=== PATIENT | male | born 1945 | race Caucasian/White ===

== ENCOUNTER 2018-07-18 03:37 | Emergency (ER) | payer MEDICARE ==
[~2018-07-18] VITALS: Ht 170.2 cm; Wt 84.0 kg
[~2018-07-18 03:37] MED LIST: ALFU10TA PO; ATOR20TA PO; BUDE10.2 INH; CHOL10002 PO; FINA5TAB11 PO; WALKERFR
[2018-07-18] MEDS ORDERED: HYDROmorphone 1 mg/ml syringe IM ONE (04:10)
[2018-07-18] MEDS ORDERED: ondansetron 4mg rapidly disintigrating tab PO ONE (04:10)
[2018-07-18 06:05] VITALS: BP 131/68
== END 2018-07-18 06:09 | disposition home or self-care (01) ==
LOC: ER 03:38
DX: S80.02XA Contusion of left knee, initial encounter (principal); M19.90 Unspecified osteoarthritis, unspecified site; Z88.5 Allergy status to narcotic agent; Z79.899 Other long term (current) drug therapy; W18.39XA Other fall on same level, initial encounter; Y93.89 Activity, other specified; Y92.89 Other specified places as the place of occurrence of the external cause; Y99.8 Other external cause status
CPT/HCPCS: 73560; 96372; 99284; J1170

== ENCOUNTER 2023-07-27 14:10 | Emergency (ER) | payer OTHER, MEDICARE ==
[~2023-07-27] VITALS: Ht 170.2 cm; Wt 85.5 kg
[2023-07-27 14:43] VITALS: BP 147/77; PULSE 65; RESP 18; TEMP 98.3; O2SAT 97
[2023-07-27] MEDS: proparacaine 0.5% ophthalmic drops 15ml EACHEYE ONE (16:11)
[2023-07-27] MEDS ORDERED: MOXI3DRO25 LEFTEYE (16:22)
== END 2023-07-27 16:29 | disposition home or self-care (01) ==
LOC: ER 14:10
DX: H10.89 Other conjunctivitis (principal); M19.90 Unspecified osteoarthritis, unspecified site; Z79.899 Other long term (current) drug therapy; Z88.8 Allergy status to other drugs, medicaments and biological substances
CPT/HCPCS: 99283

== ENCOUNTER 2024-12-30 10:12 | Outpatient (CLI) | payer OTHER ==
[~2024-12-30] VITALS: Ht 167.6 cm; Wt 83.5 kg
[2024-12-30 10:52] VITALS: PULSE 71; RESP 16; O2SAT 98
[2024-12-30] MEDS: albuterol 2.5 MG/3 ML nebule NEB ONE (11:02)
[2024-12-30 11:06] VITALS: PULSE 74; RESP 15
--- NOTE | 2024-12-30 13:00 | RADIOLOGY REPORT ---
DI CHEST,TWO VIEWS CLINICAL HISTORY: COPD COMPARISON: None TECHNIQUE: Frontal and lateral view of the chest was obtained FINDINGS: Lines and Tubes: None Lungs: No focal consolidation. Pleura: No effusion. No pneumothorax. Cardiomediastinal contours: Unremarkable Bones: No acute osseous abnormality. IMPRESSION: No acute cardiopulmonary disease.
--- NOTE | 2024-12-30 14:15 | PROCEDURE NOTE - Respiratory ---
Procedure Note-Respiratory Providers to CC Copies To 1: HELGA SINGH DO Procedure Name: This is a spirometry study dated December 30, 2024. The spirometry study was performed both before and after inhaled bronchodilator. Spirometry measurements: Both the forced vital capacity and the FEV1 measurements are normal. The FEV1 ratio however is somewhat reduced. Some of the flow rate measurements show moderate reduction. After inhaled bronchodilator was administered there is not much change in the flow volume curve. Overall conclusion: This study is abnormal. There is evidence for obstructive ventilatory defect although it remains in the mild category. 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 It is recommended the bronchodilator therapy continue for this patient. We have no previous studies for comparison. DOM OWENS MD Dec 30, 2024 14:15
== END 2024-12-30 23:59 | disposition home or self-care (01) ==
LOC: RT 10:12
PROVIDERS: ATTEND Chiropractor
DX: J44.9 Chronic obstructive pulmonary disease, unspecified (principal)
CPT/HCPCS: 71046; 94060; 94760